=== PATIENT | male | born 1995 | race Hispanic/Latino ===

== ENCOUNTER 2024-12-20 15:40 | Emergency (ER) | payer OTHER ==
[~2024-12-20] VITALS: Ht 165.1 cm; Wt 85.7 kg
[2024-12-20] MEDS ORDERED: CEPHALEXIN500 M1 PO (17:11)
[2024-12-20 17:39] VITALS: BP 142/85
== END 2024-12-20 17:45 | disposition home or self-care (01) ==
LOC: ED 15:40
DX: S68.621A Partial traumatic transphalangeal amputation of left index finger, initial encounter (principal); W20.8XXA Other cause of strike by thrown, projected or falling object, initial encounter
CPT/HCPCS: 73140; 99283